=== PATIENT | male | born 1930 | race Caucasian/White ===

== ENCOUNTER 2017-02-13 11:57 | Inpatient (IN) | payer MEDICARE, OTHER ==
[2017-02-13 14:38] LABS: Hematocrit 39 % (42-52); Hemoglobin 13.1 g/dl (14.0-18.0); Mean Corpuscular HGB Conc 34 g/dl (31-36); Mean Corpuscular Hemoglobin 32 pg (27-31); Mean Corpuscular Volume 94 fL (80-94); Mean Platelet Volume 10 um3 (7.4-10.4); Red Blood Count 4.17 10^6/ul (4.0-5.4); Red Cell Distribution Width 14 % (10.5-15); White Blood Count 5.9 10^3/ul (3.5-10.8)
[2017-02-13 14:42] LABS: Urine Bilirubin Negative (Negative); Urine Glucose Negative (Negative); Urine Nitrite Negative (Negative)
--- NOTE | 2017-02-13 14:49 | RAD ---
Indication: Vertigo. CT of the brain was performed without IV contrast. Ventricular structures are midline. No midline shift is noted. The extra-axial spaces are unremarkable. Periventricular lucency consistent with chronic ischemic changes noted. Old lacunar infarct in the right basal ganglia is noted. IMPRESSION: Chronic ischemic White matter change. No intracranial mass or hemorrhage is noted. Lacunar infarct right basal ganglia.
[2017-02-13 14:52] LABS: Albumin 4.1 g/dL (3.2-5.2); BUN/Creatinine Ratio 17.8 (8-20); Calcium 9.3 mg/dL (8.6-10.3); EGFR African American 89.7 (>60); EGFR Non-African American 69.7 (>60); Magnesium 2.1 mg/dL (1.9-2.7); Potassium 3.9 mmol/L (3.5-5.0); Total Bilirubin 0.7 mg/dL (0.2-1.0); Total Protein 7.1 g/dL (6.4-8.9)
[2017-02-13 14:53] LABS: Troponin I 0.01 ng/mL (<0.04)
[2017-02-13 15:06] LABS: TSH (Thyroid Stimulating Horm) 3.28 mcIU/mL (0.34-5.60)
--- NOTE | 2017-02-13 15:36 | ED ---
Debra Powell Rebecca, scribed for Mirtha Houston MD on 02/13/17 at 1410 . Dizziness - HPI Summary HPI Summary: Pt is an 86 y/o M who presents to ED s/p 2 episodes of dizziness. Episodes occurred both yesterday morning and this morning. Dizziness characterized as spinning. Reports yesterday's episode was that he felt "like I was looking through a haze" and he "felt almost inebriated." Negative LOC. Yesterday's episode lasted approximately 1 hour and today's lasted for a brief time. Sx aggravated by nothing, alleviated by spontaneous resolution, unchanged by head position. Denies lightheadedness, visual field deficit, tinnitus or hearing changes. Is not on blood thinners. No recent illness. - History Of Current Complaint Chief Complaint: EDDizziness Stated Complaint: NEAR SYNCOPE X2 Time Seen by Provider: 02/13/17 13:47 Hx Obtained From: Patient Onset/Duration: Resolved Timing: Frequency Of Episodes - 2 episodes Severity Currently: None Character: Room Spinning Aggravating Factor(s): Nothing Alleviating Factor(s): Other - Spontaneous resolution Associated Signs And Symptoms: Positive: Negative. Negative: Tinnitus, Visual Changes - Allergies/Home Medications Allergies/Adverse Reactions: Allergies Allergy/AdvReac Type Severity Reaction Status Date / Time Adhesive Tape Allergy See Comment Verified 10/20/12 10:36 PMH/Surg Hx/FS Hx/Imm Hx Endocrine/Hematology History: Denies: Hx Diabetes Cardiovascular History: Reports: Hx Hypertension GI History: Reports: Hx Gastroesophageal Reflux Disease - MEDS PRN Musculoskeletal History: Reports: Hx Arthritis - HANDS THUMBS Sensory History: Reports: Hx Hearing Aid - INST GIVEN Psychiatric History: Reports: Hx Anxiety - OK ON MEDS, Hx Depression - OK ON MEDS - Surgical History Surgery Procedure, Year, and Place: 1933 TONSILECTOMY [place]. 1981 DOUBLE HERNIA [place] Hx Anesthesia Reactions: No Infectious Disease History: Denies: Traveled Outside the [place] in Last 30 Days - Family History Known Family History: Positive: Other - melanoma (daughter) - Social History Lives: With Family - Alcohol Use: Weekly Substance Use Type: Reports: None Smoking Status (MU): Never Smoked Tobacco Review of Systems Positive: Other - NEGATIVE: Visual field deficit Positive: Other - NEGATIVE: Tinnitus or hearing changes Neurological: Other - POSITIVE: 2 episodes of dizziness NEGATIVE: lightheadedness All Other Systems Reviewed And Are Negative: Yes Physical Exam - Summary Physical Exam Summary: General: Well appearing, no pain distress Skin: Warm, Skin Color Reflects Adequate Perfusion, Dry Eyes: EOMI, JESSICA ENT: Pharynx normal, TMs normal Neck: Supple, nontender Respiratory: CTA, breath sounds present, no rhonchi, no wheezes, no rales Cardiovascular: RRR, no murmur, no rub, no gallop Abdomen: Soft, nontender, Non-distended, no guarding, no rebound Bowel: Present Musculoskeletal: TAJ, No edema Neuro: Sensory/motor intact, A&Ox3, CN intact 2-12 Psych: Affect/mood appropriate NIH: 0 Triage Information Reviewed: Yes Vital Signs On Initial Exam: Initial Vitals Temp Pulse Resp BP Pulse Ox 98.2 F 73 18 150/87 96 02/13/17 11:59 02/13/17 11:59 02/13/17 11:59 02/13/17 11:59 02/13/17 11:59 Vital Signs Reviewed: Yes - Alek Coma Scale Best Eye Response: 4 - Spontaneous Best Motor Response: 6 - Obeys Commands Best Verbal Response: 5 - Oriented Glascow Coma Scale Comments: 15 Diagnostics - Vital Signs Vital Signs Temp Pulse Resp BP Pulse Ox 02/13/17 11:59 98.2 F 73 18 150/87 96 - Laboratory Lab Results: Lab Results 02/13/17 02/13/17 02/13/17 Range/Units 13:50 13:50 13:50 WBC 5.9 (3.5-10.8) 10^3/ul RBC 4.17 (4.0-5.4) 10^6/ul Hgb 13.1 L (14.0-18.0) g/dl Hct 39 L (42-52) % MCV 94 (80-94) fL MCH 32 H (27-31) pg MCHC 34 (31-36) g/dl RDW 14 (10.5-15) % Plt Count 173 (150-450) 10^3/ul MPV 10 (7.4-10.4) um3 Neut % (Auto) 50.6 (38-83) % Lymph % (Auto) 33.5 (25-47) % [place] % (Auto) 11.0 H (1-9) % Eos % (Auto) 4.2 (0-6) % Baso % (Auto) 0.7 (0-2) % Absolute Neuts (auto) 3.0 (1.5-7.7) 10^3/ul Absolute Lymphs (auto) 2.0 (1.0-4.8) 10^3/ul Absolute Monos (auto) 0.6 (0-0.8) 10^3/ul Absolute Eos (auto) 0.3 (0-0.6) 10^3/ul Absolute Basos (auto) 0 (0-0.2) 10^3/ul Absolute Nucleated RBC 0 10^3/ul Nucleated RBC % 0 Sodium 135 (133-145) mmol/L Potassium 3.9 (3.5-5.0) mmol/L Chloride 101 (101-111) mmol/L Carbon Dioxide 29 (22-32) mmol/L Anion Gap 5 (2-11) mmol/L BUN 18 (6-24) mg/dL Creatinine 1.01 (0.67-1.17) mg/dL Est GFR ( Amer) 89.7 (>60) Est GFR (Non-Af Amer) 69.7 (>60) BUN/Creatinine Ratio 17.8 (8-20) Glucose 95 (70-100) mg/dL Lactic Acid (0.5-2.0) mmol/L Calcium 9.3 (8.6-10.3) mg/dL Magnesium 2.1 (1.9-2.7) mg/dL Total Bilirubin 0.70 (0.2-1.0) mg/dL AST 36 (13-39) U/L ALT 27 (7-52) U/L Alkaline Phosphatase 78 (34-104) U/L Troponin I 0.01 (<0.04) ng/mL Total Protein 7.1 (6.4-8.9) g/dL Albumin 4.1 (3.2-5.2) g/dL Globulin 3.0 (2-4) g/dL Albumin/Globulin Ratio 1.4 (1-3) TSH 3.28 (0.34-5.60) mcIU/mL Urine Color Yellow Urine Appearance Clear Urine pH 6.0 (5-9) Ur Specific Jones 1.008 L (1.010-1.030) Urine Protein Negative (Negative) Urine Ketones Negative (Negative) Urine Blood Negative (Negative) Urine Nitrate Negative (Negative) Urine Bilirubin Negative (Negative) Urine Urobilinogen Negative (Negative) Ur Leukocyte Esterase Negative (Negative) Urine Glucose Negative (Negative) Urine Ascorbic Acid * H (Negative) 02/13/17 Range/Units 13:50 WBC (3.5-10.8) 10^3/ul RBC (4.0-5.4) 10^6/ul Hgb (14.0-18.0) g/dl Hct (42-52) % MCV (80-94) fL MCH (27-31) pg MCHC (31-36) g/dl RDW (10.5-15) % Plt Count (150-450) 10^3/ul MPV (7.4-10.4) um3 Neut % (Auto) (38-83) % Lymph % (Auto) (25-47) % [place] % (Auto) (1-9) % Eos % (Auto) (0-6) % Baso % (Auto) (0-2) % Absolute Neuts (auto) (1.5-7.7) 10^3/ul Absolute Lymphs (auto) (1.0-4.8) 10^3/ul Absolute Monos (auto) (0-0.8) 10^3/ul Absolute Eos (auto) (0-0.6) 10^3/ul Absolute Basos (auto) (0-0.2) 10^3/ul Absolute Nucleated RBC 10^3/ul Nucleated RBC % Sodium (133-145) mmol/L Potassium (3.5-5.0) mmol/L Chloride (101-111) mmol/L Carbon Dioxide (22-32) mmol/L Anion Gap (2-11) mmol/L BUN (6-24) mg/dL Creatinine (0.67-1.17) mg/dL Est GFR ( Amer) (>60) Est GFR (Non-Af Amer) (>60) BUN/Creatinine Ratio (8-20) Glucose (70-100) mg/dL Lactic Acid 0.6 (0.5-2.0) mmol/L Calcium (8.6-10.3) mg/dL Magnesium (1.9-2.7) mg/dL Total Bilirubin (0.2-1.0) mg/dL AST (13-39) U/L ALT (7-52) U/L Alkaline Phosphatase (34-104) U/L Troponin I (<0.04) ng/mL Total Protein (6.4-8.9) g/dL Albumin (3.2-5.2) g/dL Globulin (2-4) g/dL Albumin/Globulin Ratio (1-3) TSH (0.34-5.60) mcIU/mL Urine Color Urine Appearance Urine pH (5-9) Ur Specific Jones (1.010-1.030) Urine Protein (Negative) Urine Ketones (Negative) Urine Blood (Negative) Urine Nitrate (Negative) Urine Bilirubin (Negative) Urine Urobilinogen (Negative) Ur Leukocyte Esterase (Negative) Urine Glucose (Negative) Urine Ascorbic Acid (Negative) Result Diagrams: 02/13/17 13:50 02/13/17 13:50 Lab Statement: Any lab studies that have been ordered have been reviewed, and results considered in the medical decision making process. - CT Brain CT CT Interpretation: No Acute Changes - Chronic ischemic White matter change. No intracranial mass or hemorrhage is noted. Lacunar infarct right basal ganglia. CT Interpretation Completed By: Radiologist National Institutes Of Health - NIH Scale Level of Consciousness: Alert/Keenly Responsive Ask Patient the Month and His/Her Age: Both Correct Ask Pt to Open/Close Eyes and Professor Of Violin/Release Non-Paretic Hand: Both Correctly Best Gaze (Only Horizontal Eye Movement): Normal Visual Field Testing: No Visual Loss Facial Paresis-Pt to Smile & Close Eyes or Grimace Symmetry: Normal/Symmetrical Motor Function - Right Arm: No Drift-Holds 10 Seconds Motor Function - Left Arm: No Drift-Holds 10 Seconds Motor Function - Right Leg: No Drift-Holds 10 Seconds Motor Function - Left Leg: No Drift-Holds 10 Seconds Limb Ataxia-Must be out of Proportion to Weakness Present: Absent Sensory (Use Pinprick to Test Arms/Legs/Trunk/Face): Normal Best Language (Describe Picture, Name Items): No Aphasia Dysarthria (Read Several Words): Normal Extinction and Inattention: No Abnormality Total Score: 0 Dizzy Course/Dx - Course Course Of Treatment: 86 yo male with non-precipitated vertigo being seen by Dr. Zapata for admission - Diagnoses Provider Diagnoses: Vertigo - Provider Notifications Discussed Care Of Patient With: Rikki Zapata Time Discussed With Above Provider: 15:25 Instructed by Provider To: Other - Will evaluate pt in the ED. Discharge - Discharge Plan Condition: Stable Disposition: ADMITTED TO [facility] documentation as recorded by the Debra golden Rebecca accurately reflects the service I personally performed and the decisions made by me, Mirtha Houston MD.
[2017-02-13] MEDS ORDERED: Aspirin TAB* 325 MG PO ONE (17:07)
[2017-02-13 17:30] LABS: HDL Cholesterol 48.6 mg/dL
[2017-02-13] MEDS ORDERED: Iohexol 350* (CONTRAST) 500 ML MDV IV SCH (17:33)
[2017-02-13] MEDS ORDERED: hydrALAZINE IV* 20 MG/ML VIAL IV SLOW PU PRN (17:53)
--- NOTE | 2017-02-13 18:26 | RAD ---
Indication: Transient ischemic attack. Contrast: Administered 79.0 ml of OMNIPAQUE 350 mg/ml CTA of the head and neck was performed after IV contrast demonstration. Coronal and sagittal reconstructed images were obtained. 3-D reconstructive images were obtained. The study of the aortic arch is limited due to left sided intravenous injection. CTA of the neck and head should typically be performed from a right-sided intravenous line according to protocol. The innominate arteries are unremarkable. Motion artifact degrades the images. Calcific plaque is noted in the carotid bulb. The left common carotid artery demonstrates no intimal wall thickening. Calcific plaque is noted in the carotid bulb. There is likely less than 50% stenosis of both internal carotid arteries. No evidence of carotid artery dissection is noted in the neck. Atherosclerosis is noted. Intracranial cavernous portion of the internal carotid arteries. The vertebral arteries demonstrates no evidence of vertebral artery dissection. Intracranial vessels demonstrates normal anterior and middle cerebral arteries. No branch occlusion or aneurysmal dilatation is noted. Posterior cerebral artery and basilar artery are unremarkable. IMPRESSION: Motion artifact limits evaluation of the common carotid arteries. Calcific plaque is noted in the internal carotid arteries at the bifurcation of less than 50%. No evidence of carotid artery dissection. No aneurysmal dilatation or branch occlusion is definitively identified on the CTA of the head.
[2017-02-13] MEDS: Finasteride TAB* 5 MG PO SCH (21:03)
[2017-02-13] MEDS: Atorvastatin* 40 MG TAB PO SCH (21:03)
[2017-02-13] MEDS: Lisinopril TAB* 10 MG PO SCH (21:04)
--- NOTE | 2017-02-13 21:54 | HP ---
HOSPITAL MEDICINE HISTORY AND PHYSICAL: DATE OF ADMISSION: 02/13/17 ATTENDING PHYSICIAN: Rikki Zapata MD * (dictation provided by Celine Jackson NP ) CHIEF COMPLAINT: Question of presyncopal episodes with gait instability. HISTORY OF PRESENT ILLNESS: Mr. Mitchell is an 86-year-old male with past medical history of hypertension and skin cancer and prostate cancer who presents to the hospital today with concern for 2 episodes where he felt unsteady on his feet. Mr. Mitchell states that yesterday after leaving the grocery store, he developed some gait instability and fuzzy vision. He felt like his legs were hard to move. He felt like his balance was impaired. He had a headache. He had no tunnel vision or vertigo. He was able to make it t to his car and sit down where his symptoms resolved after a few minutes. Patient felt well for the night, but then again this morning when he was throwing the ball outside with his dog, he had the return of the same symptoms. Again, he felt that his balance was unsteady and his legs were weak. He did not have a headache this time. He knelt to the ground and after a few minutes the symptoms passed again. He states he has been in his normal state of health recently. He has no chest pain, no shortness of breath., no nausea, vomiting, diarrhea, or abdominal pain. He notes only that he has had worse allergies this summer than in the past and he has been on Claritin. Symptoms of the allergies are head fullness and runny nose, which the Claritin seems to control relatively well. In the emergency room, Mr. Mitchell had no leukocytosis or fever. His vitals are stable. His CT of the brain showed an old chronic basal ganglia right lacunar infarct. PAST MEDICAL HISTORY: 1. History of melanoma. 2. History of basal cell cancer, status post excision. 3. Hypertension. 4. BPH. 5. Prostate cancer. 6. Double hernia repair. 7. Tonsillectomy. MEDICATIONS: 1. Quinapril 20 mg p.o. b.i.d. 2. Selenium 100 mcg p.o. b.i.d. 3. Ascorbic acid 1000 mg p.o. daily. 4. Cholecalciferol 1000 units p.o. daily. 5. Fluoxetine 20 mg p.o. q.a.m. 6. Finasteride 5 mg p.o. at bedtime. 7. Multiple vitamin 1 tab p.o. q.a.m. 8. Tamsulosin 0.4 mg p.o. daily. 9. Amlodipine 5 mg p.o. daily. ALLERGIES: ADHESIVE TAPES. FAMILY HISTORY: Patient reports that his mother at 83, seemed to be related to a lung issue that he is not clear about, and his father did from bronchial cancer at 52. He was a heavy smoker. SOCIAL HISTORY: No report of alcohol, tobacco or drug use. Patient lives with his who is the healthcare proxy. REVIEW OF SYSTEMS: A 14-point review of systems was completed with Mr. Mitchell and all those not mentioned above were negative. PHYSICAL EXAMINATION GENERAL: Mr. Mitchell is lying in the bed with and daughter at the bedside, in no acute distress. VITAL SIGNS: Temperature 97.9, heart rate 65, respiratory rate 15, O2 saturation 97% on room air, blood pressure 159/76. LUNGS: Clear to auscultation bilaterally, with no accessory muscle use and good aeration. HEART: S1 and S2. No murmur, gallop and regular. ABDOMEN: Soft, nontender with bowel sounds positive x4. EXTREMITIES: No cyanosis or edema. NEUROLOGIC: He is alert, she is oriented x3. He moves all extremities equally. There is no facial asymmetry or focal weakness. There is no ataxia. The extraocular movements are intact. SKIN: Intact. LABORATORY DATA/DIAGNOSTIC DATA: WBC is 5.9, hemoglobin 13.1, hematocrit 39, platelet count 173,000. Sodium 135, potassium 3.9, chloride 101, serum bicarbonate 29, BUN 18, creatinine 1.01, glucose 95. Lactic acid 0.6, TSH 3.28. Urine shows no evidence of infection. CT brain shows a "chronic ischemic white matter change, no intracranial mass or hemorrhages noted. It looks a chronic lacunar infarct right basal ganglia." EKG shows sinus rhythm with no evidence of ischemia and a heart rate of about 60. ASSESSMENT/PLAN: Mr. Mitchell is an 86-year-old male with past medical history of skin cancer, hypertension and prostate cancer who presents today to the hospital with concern for 2 episodes where he reports gait instability and a fuzzy feeling in his head. Our plans are for inpatient admission as I expect his length of stay to be greater than 2 days for the followin. Gait instability with a "fuzzy feeling" in his head. Mr. Mitchell's episodes were unprovoked. He does not appear to have been in the heat or dehydrated. His description does not include any vertigo, dizziness or tunnel vision. He primarily notes a gait instability and balance problems. I am concerned that perhaps he has transient ischemic attacks, especially in the setting of a chronic old infarct. His other risk factors include hypertension. Plan for a neurology consult. He will have an MRI of the brain and CTA of the head and neck. He will have a transthoracic echocardiogram and telemetry monitoring. Alternatively, his symptoms could be related to arrhythmia and will be monitoring on telemetry as per above. The patient shows no evidence of infection. His electrolytes are normal. 2. Hypertension. Continue amlodipine. The quinapril is non-formulary,plan to substitute lisinopril. 3. Prostate cancer. Continue finasteride and tamsulosin. 4. DVT prophylaxis with heparin subcu. 5. Disposition. To telemetry floor. 6. Code status is full code. TIME SPENT: Approximately 60 minutes were spent on the admission of this patient, more than half that time spent with the patient at bedside reviewing the events leading up to this hospitalization, performing the physical examination and reviewing the plan of care. CELINE JACKSON NP [id number]/RUSS #: [id number] RUT
[2017-02-13] MEDS: Heparin VIAL(*) 5000 UNITS/ML VIAL (FIVE THOUSAND) SUBCUT SCH (22:28)
[2017-02-14] MEDS: Heparin VIAL(*) 5000 UNITS/ML VIAL (FIVE THOUSAND) SUBCUT SCH ×3 (06:36→21:20)
[2017-02-14] MEDS: Lisinopril TAB* 10 MG PO SCH ×2 (07:44→21:20)
[2017-02-14] MEDS: FLUoxetine CAP* 20 MG PO SCH (07:44)
[2017-02-14] MEDS: Tamsulosin CAP* 0.4 MG PO SCH (07:44)
[2017-02-14] MEDS: amLODIPine TAB* 5 MG PO SCH (07:44)
[2017-02-14] MEDS: Ascorbic Acid TAB* 500 MG PO SCH (07:44)
[2017-02-14] MEDS: Cholecalciferol TAB* 1000 UNITS PO SCH (07:44)
[2017-02-14] MEDS: Aspirin Low Dose CHEW TAB* 81 MG PO SCH (07:44)
[2017-02-14] MEDS: Prenatal Vitamin TAB PO SCH (07:44)
--- NOTE | 2017-02-14 14:07 | PN ---
Subjective Date of Service: 02/14/17 Interval History: This is an 86 yo male with HTN and h/o prostate CA maintained on anti-hormone therapy who presented after 2 episodes of what was described as presyncope and perhaps ataxia. He has been asymptomatic since admission. Patient reports no REYNAGA, CP, SOB, vision changes. No similar symptoms to admission. Objective Active Medications: Amlodipine Besylate (Norvasc Tab*) 5 mg PO DAILY [facility] Last Admin: 02/14/17 07:44 Dose: 5 mg Ascorbic Acid (Vitamin C Tab*) 1,000 mg PO DAILY [facility] Last Admin: 02/14/17 07:44 Dose: 1,000 mg Aspirin (Aspirin Low Dose Tab*) 81 mg PO DAILY [facility] Last Admin: 02/14/17 07:44 Dose: 81 mg Atorvastatin Calcium (Lipitor*) 40 mg PO 2100 [facility] Last Admin: 02/13/17 21:03 Dose: 40 mg Cholecalciferol (Vitamin D Tab*) 1,000 units PO DAILY [facility] Last Admin: 02/14/17 07:44 Dose: 1,000 units Finasteride (Proscar Tab*) 5 mg PO BEDTIME [facility] Last Admin: 02/13/17 21:03 Dose: 5 mg Fluoxetine HCl (Prozac Cap*) 20 mg PO QAM [facility] Last Admin: 02/14/17 07:44 Dose: 20 mg Heparin Sodium (Porcine) (Heparin Vial(*)) 5,000 units SUBCUT Q8HR [facility] Last Admin: 02/14/17 13:33 Dose: 5,000 units Hydralazine HCl (Apresoline Iv*) 5 mg IV SLOW PU Q6H PRN PRN Reason: SBP > 185 Iohexol (Omnipaque 350 (Contrast)-) 80 ml IV ONCE [facility] Stop: 02/15/17 17:32 Lisinopril (Prinivil Tab*) 20 mg PO BID [facility] Last Admin: 02/14/17 07:44 Dose: 20 mg Multivitamins ( Vitamin Tab*) 1 tab PO QAM [facility] Last Admin: 02/14/17 07:44 Dose: 1 tab Tamsulosin HCl (Flomax Cap*) 0.4 mg PO DAILY [facility] Last Admin: 02/14/17 07:44 Dose: 0.4 mg Vital Signs: Temp Pulse Resp BP Pulse Ox 98.2 F 78 14 140/67 95 02/14/17 12:41 02/14/17 12:41 02/14/17 12:41 02/14/17 12:41 02/14/17 12:41 Oxygen Devices in Use Now: None Appearance: Well appearing elderly gentleman who presents with c/o presyncope and ataxia. Ears/Nose/Mouth/Throat: Mucous Membranes Moist Respiratory: Symmetrical Chest Expansion and Respiratory Effort, Clear to Auscultation Cardiovascular: RRR, - - 2/6 murmur noted Abdominal: NL Sounds; No Tenderness; No Distention Extremities: No Edema Skin: No Rash or Ulcers Neurological: Alert and Oriented x 3, - - CN II-XII grossly intact, global strength intact Result Diagrams: 02/13/17 13:50 02/13/17 13:50 Additional Lab and Data: . 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 - Patient Problems (1) Pre-syncope Comment: Patient has been asymptomatic since admission Pre-syncope accompanied some gait and possible visual disturbance Appreciate neurology input MRI and echo pending No dysrhythmia noted on tele (2) Heart murmur Comment: Patient believes this is chronic Pending echo (3) Hypertension Comment: Mild HTN Cont lisinopril and amlodipine (4) Prostate cancer Comment: Remote history Maintained on unspecified antihormone therapy, will work to confirm medication tomorrow (5) Full code status (6) DVT prophylaxis Comment: SQ heparin Status and Disposition: Inpatient. Pending MRI and echo. Possible dc tomorrow
--- NOTE | 2017-02-14 15:41 | CONS ---
NEUROLOGY CONSULTATION: DATE OF CONSULT: 02/14/17 REQUESTING PROVIDER: Celine Medrano NP REASON FOR CONSULT: Possible TIA. HISTORY OF PRESENT ILLNESS: Chato Mitchell is an 86-year-old man with a history of hypertension, prostate cancer, currently undergoing chemotherapy, which the patient is not sure of the name of the medication, as well as history of skin cancers, who presented to the emergency department yesterday after he experienced 2 episodes of unsteadiness on his feet. He is right-handed. The patient reports that 2 days ago in the morning, he and his were at the grocery store and he suddenly became unsteady on his feet. He felt like he might lose his balance. He denies any carole vertigo. He is not clear if he may have been lightheaded with this episode but denies any double vision, dysarthria, unilateral weakness, or dysphagia with the episode. He likens this sensation to being inebriated or being like a "bobblehead" but in the legs rather than the head. He asked his to drive home and she then had him sit in the chair for an hour or two. Associated with this, he had some tingling in his left hand as well as headache. He felt back to normal after the hour or two that he was seated. He then felt well for the rest of the evening and the following morning, he was out in the backyard throwing a ball to his daughter's dog when he suddenly again became unsteady on his feet. He felt that he rocked backward on his heels and thought he might lose his balance and so he went down to the ground on his hands and knees. Again, he denies any vertigo with this episode or clear vision changes. With the episode the day prior, he did also report that in association he had headache and he had some blurring or haziness of his vision. He believes that the episode yesterday, which occurred in his yard passed within a few minutes, but his did not allow him to get up until EMS arrived. They assessed him and he requested not to be transported to the hospital via ambulance and so he was brought in a personal vehicle. He has not had any recurrence of these symptoms today. He denies any prior history of stroke. The patient used to take a baby aspirin daily, but he believes he has not been taking it for the past couple of years. He was given 2 baby aspirin by his 2 days ago when he had the episode associated with left hand tingling and was given aspirin on his arrival in the emergency department yesterday. He has been under treatment for prostate cancer by Dr. Cristopher Bartholomew with [facility] in [place] for approximately the past 9 to 12 months. Since he has been receiving injections for his prostate cancer, which he indicates are given every 3 months, he has had decreased strength overall and he says he was warned that this may occur. Specifically, his family notices that his stamina is much reduced, especially when walking on an incline. He becomes winded and also gets tired out much more easily than he used to. His gait speed has also decreased and he says he will be the last one in line when they are walking somewhere, where that never used to be the case for him. He denies any muscle pain. He has not been having trouble going up or downstairs, but has had some difficulty getting out of chairs and when gardening, he needs to use his arms to push off the ground or pull up on something in order to get up off the ground. He denies any numbness or tingling in his feet. Neurology consultation was requested to assess with diagnosis of this episode. PAST MEDICAL HISTORY: 1. Hypertension. 2. BPH. 3. Prostate cancer, currently receiving chemotherapy, but exact medication is unknown. 4. History of melanoma, status post Mohs surgery. 5. History of basal cell cancer on the face, status post excision. 6. Double hernia repair. 7. Tonsillectomy. 8. Depression. HOME MEDICATIONS: 1. Quinapril 20 mg twice daily. 2. Selenium 100 mcg twice daily. 3. Ascorbic acid 1000 mg daily. 4. Cholecalciferol 1000 units daily. 5. Fluoxetine 20 mg daily. 6. Finasteride 5 mg at bedtime. 7. Multivitamin 1 tablet in the morning. 8. Tamsulosin 0.4 mg daily. 9. Amlodipine 5 mg daily. ALLERGIES: Adhesive tapes. FAMILY HISTORY: His father from lung cancer and was a heavy smoker. SOCIAL HISTORY: He denies heavy alcohol use, denies tobacco use or drug use. He lives with his , his healthcare proxy. 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 He and his family are part of the [facility] and are originally from [place]. REVIEW OF SYSTEMS: As per the HPI, otherwise negative. PHYSICAL EXAMINATION: Vital Signs: Temperature 97.7, blood pressure 157/67, heart rate 59, oxygen saturation 99% on room air. I note that his blood pressure was significantly elevated when he was first here in the range of 180s to 190s systolic. The patient reports that at most his blood pressure typically runs in the 130s to 140s. However, he also makes a mention that he has significant white coat anxiety. On general examination, the patient is in no acute distress. His heart reveals a soft systolic ejection murmur. There was 1 slight pause during auscultation, but otherwise the rhythm was regular. His lungs were clear to auscultation bilaterally. There are no carotid bruits. On neurologic examination, he is fully awake, alert, and oriented. He registered 3/3 objects and recalled 3/3 after a period of distraction. Cranial nerve testing, pupils were equal, round, and reactive from 3 to 2 mm bilaterally. He had difficulty following the examiner's finger on testing of smooth pursuits, but was able to follow the examiner's face with no obvious nystagmus. There may have been some slight limitation in upgaze. Visual guidry are full to confrontation with no extinction. Facial sensation and musculature is full and symmetric. Hearing is intact to voice. The palate elevates symmetrically and the tongue is midline. On motor examination, he has got normal bulk and tone in the upper and lower extremities. There is no pronator drift and no tremor. Strength is full proximally and distally in the upper and lower extremities. Sensation is intact to light touch and temperature in the upper and lower extremities. Vibration was present in the right great toe to approximately 6 seconds while the left great toe was felt to approximately 13 seconds. With eyes closed, he missed touching his nose bilaterally on the first try, but was accurate on the second attempt. Reflexes were 1+ in the biceps, 2+ brachioradialis, 1+ triceps, trace knees and absent ankle jerks. The toes were mute. On [id number] and [id number] testing, there was no ataxia. His gait is slightly wide based but steady. LABORATORY DATA/DIAGNOSTIC STUDIES: Reviewed includes CBC, which showed a slightly low hematocrit of 39, hemoglobin of 13.1, and slightly elevated MCH of 32. His chemistry panel is normal. Nonfasting lipid profile showed triglycerides of 209, total cholesterol of 226, LDL of 136, HDL of 48.6, and TSH of 3.28. Urinalysis was negative. Noncontrast brain CT was personally reviewed and it showed an area of hypodensity in the right basal ganglia that is potentially consistent with a lacunar infarct versus an enlarged perivascular space. There is also evidence of small vessel disease in the bilateral cerebral hemispheres. There is no acute intracranial process. CT angiogram of the head and neck was personally reviewed and showed some calcification in the left vertebral artery as well as calcification in the proximal internal carotid arteries bilaterally as well as cavernous portions of the carotid arteries bilaterally. 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 There were no obvious occlusions or significant stenosis and no hemodynamically significant stenosis in the carotid arteries. Telemetry shows no signs of atrial fibrillation. IMPRESSION: Chato Mitchell is an 86-year-old man with history of hypertension as well as prostate cancer, who presented with 2 episodes of gait imbalance. He denied any vertigo associated with these episodes. His neurologic exam is overall benign today with the exception of some vibratory loss in his great toes , which is likely consistent with his age and some initial difficulty touching his nose with his fingers with eyes closed, but improved on the second attempt. In addition, he seemed to have some difficulty with smooth pursuits but it wasn' t clear if this was due to lack of understanding of what was being asked of him. It is possible that he has suffered some posterior circulation TIAs here. I note that he does have some disease in the posterior circulation and in particular in the left vertebral artery. He has been restarted on an aspirin, which he was not taking at home. He is going to undergo an MRI of the brain tomorrow as well as transthoracic echocardiogram and continued monitoring on telemetry. He has been started on atorvastatin given his elevated LDL to 136 though this was nonfasting and we should recheck a fasting lipid panel as well as a hemoglobin A1c. In addition, his symptoms are somewhat nonspecific in the way that he describes them and I would like orthostatic vital signs checked. He also describes a general reduction in his endurance and possibly some proximal muscle weakness by history though I was not able to reproduce that on exam today. I will check a CK level and will pay particular attention to the echocardiogram in terms of his report of diminished endurance. It may be helpful to call his urologist tomorrow and find out the medication that he has been on for his prostate cancer as to whether there could be any complications similar to his presentation. Thank you for this consultation. [id number]/[facility] #: [id number] RUT
[2017-02-14] MEDS: Atorvastatin* 40 MG TAB PO SCH (21:20)
[2017-02-14] MEDS: Finasteride TAB* 5 MG PO SCH (21:20)
[2017-02-15] MEDS: Heparin VIAL(*) 5000 UNITS/ML VIAL (FIVE THOUSAND) SUBCUT SCH ×2 (06:14→14:28)
[2017-02-15] MEDS: Ascorbic Acid TAB* 500 MG PO SCH (09:30)
[2017-02-15] MEDS: Lisinopril TAB* 10 MG PO SCH (09:30)
[2017-02-15] MEDS: FLUoxetine CAP* 20 MG PO SCH (09:31)
[2017-02-15] MEDS: amLODIPine TAB* 5 MG PO SCH (09:31)
[2017-02-15] MEDS: Cholecalciferol TAB* 1000 UNITS PO SCH (09:31)
[2017-02-15] MEDS: Tamsulosin CAP* 0.4 MG PO SCH (09:31)
[2017-02-15] MEDS: Aspirin Low Dose CHEW TAB* 81 MG PO SCH (09:32)
[2017-02-15] MEDS: Prenatal Vitamin TAB PO SCH (10:57)
--- NOTE | 2017-02-15 11:52 | RAD ---
HISTORY: Gait disturbance, high blood pressure COMPARISONS: CT dated February 13, 2017 TECHNIQUE: The following sequences were obtained of the head: Sagittal T1-weighted images, axial T2-weighted images, coronal T2-weighted images, axial FLAIR images, axial susceptibility weighted images, axial T1-weighted images. Additionally, axial diffusion-weighted images were obtained with calculated apparent diffusion coefficients. FINDINGS: HEMORRHAGE/INFARCT: There is no hemorrhage or acute infarct. MASSES/SHIFT: There is no mass or shift. EXTRA-AXIAL SPACES/MENINGES: There are no extra-axial fluid collections. SULCI AND VENTRICLES: There is mild diffuse and proportional enlargement of the sulci and ventricles. CEREBRUM: There are multiple scattered small foci of elevated T2/FLAIR signal within the periventricular and subcortical white matter. There is a chronic lacunar infarct of the right posterior frontal hernandez radiata BRAINSTEM: There are small chronic appearing infarcts of the left parasagittal oscar on axial image 12. CEREBELLUM: There are no focal parenchymal abnormalities. The cerebellar tonsils are normal in size and position. SELLA: The sella is normal. PINEAL: The pineal region is clear. CP ANGLE/TEMPORAL BONES: The labyrinthine structures are grossly normal. VESSELS: Normal flow-voids are noted within the visualized vertebral vasculature. DIFFUSION ABNORMALITIES: There are no diffusion abnormalities. PARANASAL SINUSES/MASTOIDS: The paranasal sinuses are clear. ORBITS: The orbits are unremarkable. BONES AND SOFT TISSUE: No bone or soft tissue abnormalities are noted. OTHER: None IMPRESSION: 1. DIFFUSE INVOLUTIONAL CHANGE WITH NONSPECIFIC WHITE MATTER CHANGES SUGGESTIVE OF CHRONIC SMALL VESSEL ISCHEMIA. 2. NO RESTRICTED DIFFUSION TO SUGGEST ACUTE INFARCT
[2017-02-15] MEDS ORDERED: Metoprolol Tartrate TAB* 25 MG PO SCH (13:00)
[2017-02-15 15:23] VITALS: BP 138/68
--- NOTE | 2017-02-15 15:48 | ECHO ---
Patient: CAMILLA RAMIREZ [facility] Rec#: [id number] : 1930 Date: 02/15/2017 Age: 86y Height: 175.26 cm / 69.0 in Weight: 81.65 kg / 180.0 lbs Sex: M BSA: 1.98 Room#: 435 Admit Date#: 02/13/2017 Type: Inpatient Referring: Celine Medrano NP Reading: Paul Mckeon MD Strategic Planning Specialist: Ivory Scott RDCS,RDMS Transthoracic Echocardiogram Indication: CVA BP: 152/82 HR: 72 Rhythm: NSR Findings History: HTN Technical Comments: The study quality is good. Completed 1500 Left Ventricle: The left ventricular chamber size is normal. Mild concentric left ventricular hypertrophy is observed. Global left ventricular wall motion and contractility are within normal limits. There is normal left ventricular systolic function. The estimated ejection fraction is 55-60%. Abnormal left ventricular diastolic filling is observed, consistent with impaired relaxation. Left Atrium: The left atrium is slightly dilated. Right Ventricle: The right ventricular chamber size and systolic function are within normal limits. Right Atrium: The right atrial cavity size is normal. A patent foramen ovale is not demonstrated with color Doppler and agitated contrast. Aortic Valve: The aortic valve is trileaflet. The aortic valve leaflets are mildly thickened. There is aortic annular calcification. There is a trace of aortic regurgitation. There is mild aortic stenosis. The mean gradient of the aortic valve is 13.6 mmHg. The aortic valve area, by peak velocities, is calculated at 1.2 cm2. Mitral Valve: The mitral valve leaflets are mildly thickened. There is a trace of mitral regurgitation. There is no evidence of mitral stenosis. Tricuspid Valve: The tricuspid valve leaflets are normal. There is mild tricuspid regurgitation. No pulmonary hypertension is noted. Pulmonic Valve: There is no evidence of pulmonic valve thickening. There is a trace pulmonic regurgitation. Pericardium: There is no significant pericardial effusion. Aorta: The aortic root appears normal. There is no dilatation of the aortic arch. Pulmonary Artery: The main pulmonary artery is not well visualized. Venous: The inferior vena cava appears normal in size. There is a greater than 50% respiratory change in the inferior vena cava dimension. Contrast: Intravenous agitated saline contrast was used to assess intracardiac shunting. Images 1 and 2 Conclusions Global left ventricular wall motion and contractility are within normal limits. There is normal left ventricular systolic function. The estimated ejection fraction is 55-60%. The right ventricular chamber size and systolic function are within normal limits. A patent foramen ovale is not demonstrated with color Doppler and agitated contrast. The aortic valve leaflets are mildly thickened. There is mild aortic stenosis. The mean gradient of the aortic valve is 13.6 mmHg. There is a trace of mitral regurgitation. There is mild tricuspid regurgitation. No pulmonary hypertension is noted. There is no significant pericardial effusion. Measurements Name Value Normal Range RVIDd (AP) 2D 2.9 cm (0.9 - 2.6) RVDdMajor (2D) 2.2 cm (2.2 - 4.4) RAd ISD 4CH 4.6 cm (3.4 - 4.9) RA (A4C)W 3.9 cm (2.9 - 4.6) IVSd (2D) 1.4 cm (0.6 - 1) LVPWd (2D) 1.4 cm (0.6 - 1) LVIDd (2D) 4 cm (3.6 - 5.4) LVIDs (2D) 3.4 cm - LV FS (2D) 15 % (25 - 45) Aortic Annulus 2.1 cm (1.4 - 2.6) Ao root diameter (2D) 2.9 cm (2.1 - 3.5) Ascending Ao 3.2 cm (2.1 - 3.4) Aortic arch 2.7 cm (1.8 - 3.4) LA dimension (AP) 2D 4.5 cm (2.3 - 3.8) LAd ISD 4CH 5.1 cm (2.9 - 5.3) LA ISD 4CH W 3.8 cm (2.5 - 4.5) Name Value Normal Range LA ESV SP 4CH (A/L) 55.27 ml - LA ESV SP 2CH (A/L) 53.3 ml - LA ESV BP (A/L) 58.24 ml - LA ESV BP (A/L) index 29.4 ml/m2 - LA ESV SP 4CH (MOD) 50.96 ml - LA ESV SP 2CH (MOD) 49.7 ml - Name Value Normal Range MV E-wave Vmax 0.6 m/sec - MV deceleration time 223 msec - MV A-wave Vmax 0.9 m/sec - MV E:A ratio 0.7 ratio - P. vein S-wave Vmax 0.5 m/sec - P. vein D-wave Vmax 0.2 m/sec - P. vein S:D Vmax ratio 2.1 ratio - P. vein A-wave duration 100 msec - LV septal e' Vmax 0.07 m/sec - LV lateral e' Vmax 0.06 m/sec - LV E:e' septal ratio 8.6 ratio - LV E:e' lateral ratio 10 ratio - Name Value Normal Range AV Vmax 2.6 m/sec - AV VTI 50.1 cm - AV peak gradient 27 mmHg - AV mean gradient 13.6 mmHg - LVOT diameter 2 cm - LVOT Vmax 1 m/sec - LVOT VTI 24 cm - LVOT peak gradient 4 mmHg - LVOT mean gradient 1.8 mmHg - DOI (VTI) 0.5 ratio - SV LVOT 71.79 ml - GINETTE (continuity Vmax) 1.2 cm2 - GINETTE (continuity VTI) 1.5 cm2 - Name Value Normal Range TR Vmax 2.5 m/sec - TR peak gradient 25 mmHg - RAP 3 mmHg - RVSP 28 mmHg - IVC diameter 2 cm - Name Value Normal Range PV Vmax 1.1 m/sec - PV peak gradient 5 mmHg -
--- NOTE | 2017-02-16 00:07 | PN ---
PROGRESS NOTE: DATE OF FOLLOWUP: 02/15/17 OVERNIGHT EVENTS: No acute overnight events. He has not had any recurrence of his symptoms. On telemetry, he is noted to have frequent PVCs, which he says has been a longstanding issue for him. He was also noted to have a short run of ventricular tachycardia. MEDICATIONS: Reviewed and include: 1. Amlodipine 5 mg daily. 2. Aspirin 81 mg daily. 3. Lipitor 40 mg daily. 4. Fluoxetine 20 mg daily. 5. Lisinopril 20 mg twice daily. 6. Lopressor 12.5 mg has been added twice daily. PHYSICAL EXAMINATION: Vital Signs: Temperature 98.2, blood pressure 138/68, heart rate 70, oxygen saturation 95% on room air. The patient was not formally re- examined today. He was seated in a chair at his bedside with his and 2 daughters present. His speech was fluent without dysarthria or aphasia. He moved all extremities equally. His face appeared symmetric. Orthostatic vital signs were obtained yesterday evening and in the lying position was measured at 140/64 with heart rate of 77, in the sitting position 140/70 with heart rate of 80 and standing 115/62 with heart rate of 84. DATA: Brain MRI was obtained and personally reviewed and showed evidence of small vessel ischemic disease in the bilateral cerebral hemispheres as well as probable old lacunar infarction in the right basal ganglia. Transthoracic echocardiogram showed normal left ventricular wall motion with an EF of 55% to 60%. There is no PFO. There is mild aortic stenosis. His CK level was only mildly elevated at 228 with the upper limit of normal being 223. Fasting lipid profile showed triglycerides of 107, cholesterol 170, LDL of 105, and HDL of 44. IMPRESSION: Chato Mitchell is an 86-year-old man with history of hypertension as well as prostate cancer, treated with Lupron, who presented with 2 episodes of gait imbalance. His MRI scan showed evidence of small vessel disease but no acute infarction. His symptoms were somewhat nonspecific but could represent posterior circulation transient ischemic attack. As such, he has been started on baby aspirin daily as well as atorvastatin, though his fasting lipid profile shows that his LDL is only slightly above 100. His orthostatic vital signs did demonstrate signs of orthostasis yesterday. This may have contributed to symptoms as well, though I do not see any mention made in the record that he was symptomatic with these measurements yesterday. He has also had some potential dysrhythmias noted on telemetry and so we are going to set him up with an outpatient Holter monitor and he should also have an outpatient cardiology consult as well. Otherwise, from a neurologic standpoint, he appears stable for discharge today. [id number]/[facility] #: [id number] RUT
--- NOTE | 2017-02-16 00:41 | DS ---
CC: ABIEL Ramirez; Dr. Bradshaw; Dr. Mckeon * DISCHARGE SUMMARY: DATE OF ADMISSION: 02/13/17 DATE OF DISCHARGE: 02/15/17 PRIMARY CARE PROVIDER: ABIEL Ramirez CONSULTING NEUROLOGIST: Dr. Liz Bradshaw. BLOOD BANK ORDER CONTROL CLERK: To be established, Dr. Mckeon. DISCHARGING PROVIDER: ABIEL Phelan SUPERVISING PHYSICIAN: Dr. Freddy Perez.* (DICTATED BY ABIEL PHELAN) PRIMARY DISCHARGE DIAGNOSES: 1. Presyncope and ataxia secondary to transient ischemic attack versus dysrhythmia. 2. Short run of ventricular tachycardia observed during the hospital stay, the patient was asymptomatic. 3. Mild aortic stenosis. SECONDARY DISCHARGE DIAGNOSES: 1. Hypertension - the patient was moderately hypertensive during his hospital stay. 2. Remote history of prostate cancer, maintained on Lupron therapy. DISCHARGE MEDICATIONS: 1. Aspirin 81 mg p.o. daily. 2. Atorvastatin 40 mg p.o. at bedtime. 3. Vitamin D 1000 units p.o. daily. 4. Prozac 20 mg p.o. daily. 5. Finasteride 5 mg p.o. at bedtime. 6. Metoprolol tartrate 12.5 mg p.o. twice daily. 7. Multivitamin 1 tablet p.o. daily. 8. Quinapril 20 mg p.o. twice daily. 9. Flomax 0.4 mg p.o. daily. 10. Amlodipine 5 mg p.o. daily. Medication changes: 1. Start aspirin. 2. Start atorvastatin. 3. Start metoprolol. HOSPITAL IMAGIN. CT of the brain shows chronic ischemic white matter changes. No intracranial mass or hemorrhage, likely lacunar infarct that is chronic in the right basal ganglia. 2. CTA of the head shows calcific plaque in the internal carotid artery with the bifurcation of less than 50%. No dissection or aneurysmal dilatation noted. 3. MRI of the brain shows diffuse involutional change with nonspecific white matter changes suggestive of chronic small vessel ischemia. No areas of restricted diffusion to suggest acute infarct. 4. Transthoracic echocardiogram. The patient has left ventricular ejection fraction of 55% to 60%, mild aortic stenosis. No significant diastolic dysfunction. HOSPITAL COURSE: This is a pleasant 86-year-old gentleman with history of hypertension, remote history of prostate cancer, and prior melanoma, who presented to the emergency department after 2 prior episodes of what was described as presyncope and gait instability. The patient was in the grocery store for one incident and outside throwing a ball for his dog for the other incident. He did not experience full syncope or complaints of chest pain or palpitations. Symptoms lasted severe minutes on each occasion. Initial imaging showed what was likely an old infarct in the right basal ganglia. His initial labs including CBC and comprehensive metabolic panel were unremarkable including a negative troponin and normal urinalysis. The patient was subsequently admitted for a possible TIA. He underwent an MRI of the brain that demonstrated no acute infarct. CTA of the brain showed no significant stenosis. The patient was maintained on continuous telemetry monitoring during his hospital stay and he did have one run of 4 beats of ventricular tachycardia during which he was asymptomatic and he did have otherwise frequent PVCs. He remained asymptomatic throughout his hospital stay. He was also noted to be mildly orthostatic at the time of admission, which certainly may have contributed to his presenting symptoms. The patient underwent evaluation by neurologist, Dr. Bradshaw, who suggested that his symptoms may be consistent with TIA and suggested initiating aspirin and statin therapy. Based on his run of V-tach and frequent PVCs, the patient was also started on a beta birdie, and would recommend Holter monitor or possible event monitor if symptoms continue. DISPOSITION AND FOLLOWUP PLAN: The patient is being discharged to home where he lives with his . Recommend medication changes as outlined above. He requires followup with his primary care provider, referral has been initiated to Cardiology for further evaluation of his V-tach. ABIEL PHELAN [id number]/[facility] #: [id number] RUT
== END 2017-02-15 17:20 | disposition home or self-care (01) | DRG 69 ==
LOC: ED 11:57 → MEDTELE 16:22
PROVIDERS: ADMIT Internal Medicine; ATTEND Hospitalist
DX: G45.9 Transient cerebral ischemic attack, unspecified (principal); I47.2 Ventricular tachycardia; G40.909 Epilepsy, unspecified, not intractable, without status epilepticus; C61 Malignant neoplasm of prostate; R27.8 Other lack of coordination; I95.1 Orthostatic hypotension; I35.0 Nonrheumatic aortic (valve) stenosis; I10 Essential (primary) hypertension; N40.0 Benign prostatic hyperplasia without lower urinary tract symptoms; I49.3 Ventricular premature depolarization; Z85.820 Personal history of malignant melanoma of skin; Z79.899 Other long term (current) drug therapy; Z91.048 Other nonmedicinal substance allergy status; Z82.5 Family history of asthma and other chronic lower respiratory diseases; Z80.1 Family history of malignant neoplasm of trachea, bronchus and lung
CPT/HCPCS: 36415; 70450; 70496; 70498; 70551; 80053; 80061; 81003; 82550; 83036; 83605; 83735; 84443; 84484; 85025; 93005; 93306; A9270-GY; J1644; Q9967